=== PATIENT | female | born 1935 | race Caucasian/White ===

== ENCOUNTER → 2017-01-10 | Outpatient (CLI) | payer MEDICARE ==
[~2017-01-10] MED LIST: ASPI81; ATOR20TA42; ATOR20TA42 PO; CARV6.25 PO; FOLI400T30 PO; IBUP-232 PO; ROLACHW21 CHEW; TAB-TAB PO; ZITH250T PO
[2017-01-10 12:44] LABS: BASOPHIL % 0.8 % (0.0-2.0); EOSINOPHIL # 0.2 TH/MM3 (0-0.4); EOSINOPHIL % 4.2 % (0.0-4.0); HEMATOCRIT 43.3 % (35.0-46.0); HEMO FLAGS DIFF FINAL; LYMPH % 34.6 % (9.0-44.0); LYMPHOCYTE # 2.1 TH/MM3 (1.0-4.8); MEAN CELL VOLUME 92.9 FL (80.0-100.0); MEAN CORPUSCULAR HEMOGLOBIN 30.4 PG (27.0-34.0); MEAN CORPUSCULAR HGB CONC 32.7 % (32.0-36.0); MONO % 9.7 % (0.0-8.0); NEUT % 50.7 % (16.0-70.0); PLATELET COUNT 146 TH/MM3 (150-450); RED BLOOD COUNT 4.65 MIL/MM3 (4.00-5.30); RED CELL DISTRIBUTION WIDTH 14.8 % (11.6-17.2); WHITE BLOOD COUNT 5.9 TH/MM3 (4.0-11.0)
[2017-01-10 13:09] LABS: ANION GAP 5 MEQ/L (5-15); AST (GOT) 18 U/L (15-37); BICARBONATE 26.9 MEQ/L (21.0-32.0); BLOOD UREA NITROGEN 15 MG/DL (7-18); CHLORIDE 111 MEQ/L (98-107); GLOMERULAR FILTRATION RATE 69 ML/MIN (>89); GLUCOSE,FASTING 106 MG/DL (74-99); POTASSIUM 4.1 MEQ/L (3.5-5.1); SODIUM (NA) 143 MEQ/L (136-145)
[2017-01-10 13:12] LABS: MICRO ALBUMIN RANDOM URINE RAW 12.2 MG/L (0.0-30.0)
[2017-01-10 13:18] LABS: ALKALINE PHOSPHATASE 85 U/L (45-117); ALT (GPT) 26 U/L (10-53); FREE T4 1.11 NG/DL (0.76-1.46); HDL CHOLESTEROL 48.5 MG/DL (40.0-60.0); LDL CHOLESTEROL 76 MG/DL (0-99); TOTAL BILIRUBIN ADULT 0.4 MG/DL (0.2-1.0)
== END ==
LOC: PLAB 07:40
PROVIDERS: ATTEND General Practice
DX: I10 Essential (primary) hypertension (principal); E78.2 Mixed hyperlipidemia; Z79.899 Other long term (current) drug therapy
CPT/HCPCS: 36415; 80053; 80061; 82043; 84439; 84443; 85025

== ENCOUNTER → 2017-09-10 | Outpatient (CLI) | payer MEDICARE ==
[2017-09-10 13:33] LABS: ANION GAP 6 MEQ/L (5-15); AST (GOT) 20 U/L (15-37); BLOOD UREA NITROGEN 22 MG/DL (7-18); CHLORIDE 106 MEQ/L (98-107); GLOMERULAR FILTRATION RATE 62 ML/MIN (>89); GLUCOSE,FASTING 98 MG/DL (74-99); POTASSIUM 4.6 MEQ/L (3.5-5.1); SODIUM (NA) 141 MEQ/L (136-145)
[2017-09-10 13:36] LABS: AUTOMATED NEUTROPHIL # 3.2 TH/MM3 (1.8-7.7); BASOPHIL % 0.2 % (0.0-2.0); EOSINOPHIL # 0.1 TH/MM3 (0-0.4); EOSINOPHIL % 1.7 % (0.0-4.0); HEMATOCRIT 43.9 % (35.0-46.0); HEMO FLAGS DIFF FINAL; LYMPHOCYTE # 2.4 TH/MM3 (1.0-4.8); MEAN CELL VOLUME 94.1 FL (80.0-100.0); MONO % 8.5 % (0.0-8.0); NEUT % 51.6 % (16.0-70.0); PLATELET COUNT 110 TH/MM3 (150-450); RED BLOOD COUNT 4.67 MIL/MM3 (4.00-5.30); RED CELL DISTRIBUTION WIDTH 13.4 % (11.6-17.2); WHITE BLOOD COUNT 6.2 TH/MM3 (4.0-11.0)
[2017-09-10 13:43] LABS: ALKALINE PHOSPHATASE 79 U/L (45-117); ALT (GPT) 26 U/L (10-53); FREE T4 1.16 NG/DL (0.76-1.46); HDL CHOLESTEROL 44.9 MG/DL (40.0-60.0); LDL CHOLESTEROL 71 MG/DL (0-99); TOTAL BILIRUBIN ADULT 0.5 MG/DL (0.2-1.0)
[2017-09-10 14:11] LABS: MICRO ALBUMIN RANDOM URINE RAW 11.5 MG/L (0.0-30.0)
== END ==
LOC: PLAB 09:26
PROVIDERS: ATTEND General Practice
DX: I10 Essential (primary) hypertension (principal); R78.2 Finding of cocaine in blood; Z79.899 Other long term (current) drug therapy
CPT/HCPCS: 36415; 80053; 80061; 82043; 84439; 84443; 85025

== ENCOUNTER 2017-11-14 09:33 | Emergency (ER) | payer MEDICARE ==
[~2017-11-14] VITALS: Ht 167.6 cm; Wt 96.7 kg
[2017-11-14 09:36] VITALS: BP 156/71; PULSE 51; RESP 18; TEMP 97.5; O2SAT 96
[2017-11-14] MEDS ORDERED: CARV12.52 PO (09:45)
[2017-11-14] MEDS ORDERED: LIPI10TA PO (09:45)
[2017-11-14] MEDS ORDERED: AZIT250T3 PO (10:16)
[2017-11-14] MEDS ORDERED: BENZ100 PO (10:16)
--- NOTE | 2017-11-14 10:24 | PD ---
HPI Chief Complaint: Cold / Flu Symptoms Time Seen by Provider: 09:55 Travel History International Travel<30 days: No Contact w/Intl Traveler<30days: No Traveled to known affect area: No History of Present Illness HPI 82-year-old female that presents to the ED for evaluation of congestion and cough. Per patient she's had this since the weekend. Symptoms have worsened the past couple days and he feels like is going to her chest. Per patient the cough is nonproductive. She's been taking OTC meds with some relief but the symptoms continue which is what concerned her. She doesn't have any bony aches or fevers. No sick contacts as far she knows. She denies any recent travel. No history of asthma or COPD. No shortness of breath but cough get significant at night. Patient has an allergy to codeine. Patient states that she has slight sore throat but the pain is minimal 2 out of 10. No chest pain. History of A. fib with rate control medication but no blood thinner use alert and aspirin. Denies any urinary or bowel movement issues. No other medical issues at this time. PFSH Past Medical History Hx Anticoagulant Therapy: Yes (ASA 81MG DAILY) High Cholesterol: Yes Coronary Artery Disease: Yes Diminished Hearing: No Hiatal Hernia: Yes Medical other: Yes (GERD, ARTHRITIS, BAD BACK & NECK) ?: Not Menopausal: Yes Past Surgical History Gynecologic Surgery: Yes (HYSTERECTOMY) Hysterectomy: Yes Pacemaker: No Other Surgery: Yes Social History Alcohol Use: Yes (RARELY) Tobacco Use: No Substance Use: No Allergies-Medications (Allergen,Severity, Reaction): Coded Allergies: codeine (Unverified Allergy, Intermediate, Irritability/Anxiety, 11/14/17) Reported Meds & Prescriptions Reported Meds & Active Scripts Active Tessalon Perles (Benzonatate) 100 Mg Cap 100 Mg PO TID PRN Azithromycin 250 Mg Tab 250 Mg PO DIRECTED Take 2 tabs (500 mg) on day 1 then 1 tab daily x 4 days. Reported Lipitor (Atorvastatin Calcium) 10 Mg Tab 10 Mg PO HS Carvedilol 12.5 Mg Tab 12.5 Mg PO BID Review of Systems Except as stated in HPI: all other systems reviewed are Neg Physical Exam Narrative GENERAL: Well-nourished, well-developed patient in no apparent distress. SKIN: Warm and dry. HEAD: Atraumatic. Normocephalic. EYES: Pupils equal and round reactive to light and accommodation. No scleral icterus. No injection or drainage. ENT: No nasal bleeding or discharge. Mucous membranes pink and moist. TMs are clear with no sign of infection or perforation. No mastoid tenderness. Ear canals are intact bilaterally. No lymphadenopathy. Nostril mucosa is red and moist with clear mucus noted. No sinus tenderness to palpation noted. Tonsils are not enlarged or swollen. No ulvua Deviation. Tongue is midline. NECK: Trachea midline. No JVD. No meningeal signs noted CARDIOVASCULAR: Regular rate and rhythm. RESPIRATORY: No accessory muscle use. Clear to auscultation. Breath sounds equal bilaterally. GASTROINTESTINAL: Abdomen soft, non-tender, nondistended. Hepatic and splenic margins not palpable. MUSCULOSKELETAL: Extremities without clubbing, cyanosis, or edema. No obvious deformities. NEUROLOGICAL: Awake and alert. No obvious cranial nerve deficits. Motor grossly within normal limits. Five out of 5 muscle strength in the arms and legs. Normal speech. PSYCHIATRIC: Appropriate mood and affect; insight and judgment normal. Data Data Last Documented VS Vital Signs Date Time Temp Pulse Resp B/P (MAP) Pulse Ox O2 Delivery O2 Flow Rate FiO2 11/14/17 09:36 97.5 51 18 156/71 (99) 96 Orders Orders Chest, Single Ap (11/14/17 ) [facility] Medical Decision Making Medical Screen Exam Complete: Yes Emergency Medical Condition: Yes Medical Record Reviewed: Yes Interpretation(s) CXR negative Differential Diagnosis Bronchitis versus pneumonia versus sinusitis Narrative Course 82-year-old female that presents to the ED for evaluation of cold like symptoms. Patient was properly examined and was found to have signs and symptoms concerning for pneumonia versus bronchitis. Chest x-ray was ordered. Chest x-ray was negative for pneumonia. Patient was sure. This time we'll treat as bronchitis with Tessalon Perles and azithromycin to cover for bacterial infection secondary to the patient's age. Told to take OTC meds as needed. Follow up with PCP. See ED worsening symptoms. Diagnosis Primary Impression: Bronchitis Patient Instructions: General Instructions Additional Instructions: Motrin and Tylenol for pain and fever. You can use [id number] antihistamine as well as well as Mucinex as needed for runny nose and congestion. Cough drops for cough as needed. Drink plenty of fluids. Follow-up with PCP. See ED for worsening symptoms. Med/Other Pt SpecificInfo: Prescription(s) given Scripts Benzonatate (Tessalon Perles) 100 Mg Cap 100 MG PO TID Y for COUGH, #20 CAP 0 Refills Prov: Jaquan Kaplan MD 11/14/17 Azithromycin (Azithromycin) 250 Mg Tab 250 MG PO DIRECTED for Infection, #6 TAB 0 Refills Take 2 tabs (500 mg) on day 1 then 1 tab daily x 4 days. Prov: Jaquan Kaplan MD 11/14/17 Disposition: 01 DISCHARGE HOME Condition: Stable Ramiro Luna Nov 14, 2017 10:24
--- NOTE | 2017-11-14 10:33 | RADRPT ---
EXAM DATE/TIME: 11/14/2017 10:08 [place] COMPARISON: No previous studies available for comparison. INDICATIONS : Cough, congestion. MEDICAL HISTORY : Hypertension. SURGICAL HISTORY : None. ENCOUNTER: Initial ACUITY: 1 week PAIN SCORE: 0/10 LOCATION: Bilateral chest FINDINGS: A single view of the chest demonstrates the lungs to be symmetrically aerated without evidence of mas s, infiltrate or effusion. The cardiomediastinal contours are unremarkable. Osseous structures are intact. CONCLUSION: No acute disease. Ross Owens MD on November 14, 2017 at 10:29 Board Certified Radiologist. This report was verified electronically.
== END 2017-11-14 10:34 | disposition home or self-care (01) ==
LOC: PHEFT 09:33
DX: J40 Bronchitis, not specified as acute or chronic (principal); E78.00 Pure hypercholesterolemia, unspecified; I25.10 Atherosclerotic heart disease of native coronary artery without angina pectoris; K21.9 Gastro-esophageal reflux disease without esophagitis; I48.91 Unspecified atrial fibrillation; M47.9 Spondylosis, unspecified; Z79.82 Long term (current) use of aspirin
CPT/HCPCS: 71045; 99283

== ENCOUNTER → 2017-12-18 | Outpatient (CLI) | payer MEDICARE ==
[~2017-12-18] MED LIST changes: -ASPI81; -ATOR20TA42; -ATOR20TA42 PO; +AZIT250T3 PO; +BENZ100 PO; +CARV12.52 PO; -CARV6.25 PO; -FOLI400T30 PO; -IBUP-232 PO; +LIPI10TA PO; -ROLACHW21 CHEW; -TAB-TAB PO; -ZITH250T PO
[2017-12-18 13:53] LABS: FREE T4 1.02 NG/DL (0.76-1.46)
== END ==
LOC: PLAB 12:08
PROVIDERS: ATTEND Internal Medicine Endocrinology, Diabetes & Metabolism
DX: E04.2 Nontoxic multinodular goiter (principal)
CPT/HCPCS: 36415; 84439; 84443